=== PATIENT | male | born 1990 | race Caucasian/White ===

== ENCOUNTER → 2019-01-31 | Outpatient (CLI) | payer OTHER ==
--- NOTE | 2019-01-31 19:33 | REP ---
Clinical: Inguinal hernia. Technique: Axial noncontrast images from the lung bases to the pubic symphysis with coronal and sagittal re-formations. Comparison: None. Findings: There is a very subtle forming fat containing right inguinal hernia. Liver, spleen, pancreas, gallbladder, bilateral adrenal glands and kidneys are normal for noncontrast evaluation. The enteric system is without obstruction or acute inflammatory process. Moderate fecal stasis and possible constipation should be correlated with clinical examination. Normal terminal ileum, cecum and appendix identified in the right lower quadrant. Pelvis demonstrates normal bladder and age appropriate prostate/seminal vesicles. No ascites. No free air. No adenopathy. Lung bases are clear. Impression: Very subtle early-forming fat containing right inguinal hernia. Electronically Signed by Khang Nunn MD 01/31/2019 07:24 P
== END ==
LOC: M RAD 08:34
PROVIDERS: ATTEND Family Medicine
DX: K40.90 Unilateral inguinal hernia, without obstruction or gangrene, not specified as recurrent (principal)